=== PATIENT | female | born 1930 | race African-American/Black ===

== ENCOUNTER → 2016-10-24 | Outpatient (CLI) | payer MEDICARE, MEDICAID ==
[~2016-10-24] MED LIST: ALBU17AE27 IH; AMLO-512 PO; ATOR10TA84 PO; ATOR20TA86 PO; BISA10S PR; DOCU250C91 PO; FLEET ENEMA RC; HYDR25TA84 PO; IPRA3AMP4 NEB; LISI40TA4 PO; LORA10TA60 PO; LOSA50TA37 PO; MEMA10TA11 PO; MOM30 PO; PANT40TA25 PO; POTA8TAB4 PO; RISPERDONE PO; SENN-30 PO; TRAZ-144 PO; [UNRECOGNIZED DRUG - CODE]; pataday
[2016-10-24 13:49] VITALS: BP 93/44
== END | disposition home or self-care (01) ==
LOC: SRCNTR 13:48
PROVIDERS: ATTEND Internal Medicine
DX: J45.909 Unspecified asthma, uncomplicated (principal); I10 Essential (primary) hypertension; F03.90 Unspecified dementia, unspecified severity, without behavioral disturbance, psychotic disturbance, mood disturbance, and anxiety; J09.X1 Influenza due to identified novel influenza A virus with pneumonia; J18.9 Pneumonia, unspecified organism
CPT/HCPCS: G0463